=== PATIENT | male | born 1985 | race African-American/Black ===

== ENCOUNTER 2019-10-19 20:05 | Emergency (ER) | payer OTHER ==
[~2019-10-19] VITALS: Ht 185.4 cm; Wt 95.5 kg
[2019-10-19 20:36] VITALS: BP 125/88
[2019-10-19] MEDS ORDERED: chlorproMAZINE IM 25 MG/ML AMPUL IM ONE (21:15)
--- NOTE | 2019-10-19 21:31 | PHYS DOC ---
Past Medical History Past Medical History: No Pertinent History (RAH MOORE APRN) Past Surgical History: No Surgical History (RAH MOORE APRN) Smoking Status: Never Smoker Alcohol Use: None (RAH MOORE APRN) Attending Signature I have participated in the care of this patient and I have reviewed and agree with all pertinent clinical information above including history, exam, and recommendations. (BAY WINSTON MD) Adult General Chief Complaint Chief Complaint: HICCUPS/SINGULTUS HPI HPI Patient is a 34 year old male who presents to the emergency department with complaints of intractable hiccups for the last 3 days. He denies any nausea, vomiting, diarrhea, fever, cough, nasal congestion, shortness of breath, wheezing, or stridor. Patient states that his stomach hurts with the hiccuping. He denies any chest pain, palpitations, syncope, numbness, tingling, or heada lux. Patient states that he was treated for strep throat last week and that he has completed the antibiotics. He currently denies any pain unless he is hiccuping. With hiccuping the pain increases to 9 out of 10 on the pain scale located in his upper abdomen. (RAH MOORE APRN) Review of Systems Review of Systems Complete ROS is negative unless otherwise noted in HPI. (RAH MOORE APRN) Current Medications Current Medications Current Medications Medications (Trade) Dose Ordered Sig/Anne Start Time Stop Time Status Last Admin Dose Admin Chlorpromazine HCl (Thorazine Im) 25 mg 1X ONCE 10/19/19 21:15 10/19/19 21:16 DC 10/19/19 21:27 25 MG (BAY WINSTON MD) Allergies Allergies Allergies Coded Allergies Type Severity Reaction Last Updated Verified No Known Drug Allergies 10/19/19 No (BAY WINSTON MD) Physical Exam Physical Exam See Above Constitutional: Well developed, well nourished, no acute distress, non-toxic appearance. [] HENT: Normocephalic, atraumatic, bilateral external ears normal, oropharynx moist, no oral exudates, nose normal. [] Eyes: PERRLA, EOMI, conjunctiva normal, no discharge. [] Neck: Normal range of motion, no tenderness, supple, no stridor. [] Cardiovascular:Heart rate regular rhythm, no murmur [] Lungs & Thorax: Bilateral breath sounds clear to auscultation [] Abdomen: soft, no tenderness Skin: Warm, dry, no erythema, no rash. [] Extremities: No cyanosis, ROM intact Neurologic: Alert and oriented X 3, no focal deficits noted. [] Psychologic: Affect normal, judgement normal, mood normal. [] (RAH MOOER APRN) Current Patient Data Vital Signs Vital Signs Date Time Temp Pulse Resp B/P (MAP) Pulse Ox O2 Delivery O2 Flow Rate FiO2 10/19/19 20:36 98.1 77 20 125/88 (100) 97 Room Air 98.1 (BAY WINSTON MD) EKG EKG [] (RAH MOORE APRN) Radiology/Procedures Radiology/Procedures [] (RAH MOORE APRN) Course & Med Decision Making Course & Med Decision Making Pertinent Labs and Imaging studies reviewed. (See chart for details) [] (RAH MOORE APRN) Dragon Disclaimer Dragon Disclaimer This electronic medical record was generated, in whole or in part, using a voice recognition dictation system. (RAH MOORE APRN) Departure Departure Impression: Primary Impression: Intractable hiccoughs Disposition: 01 HOME, SELF-CARE Condition: STABLE Referrals: NO PCP (PCP) Patient Instructions: Hiccups-Brief Additional Instructions: Follow up with your primary care doctor this week. Return to the ER if symptoms worsen. RAH MOORE APRN Oct 19, 2019 21:31 BAY WINSTON MD Oct 20, 2019 05:53
== END 2019-10-19 21:40 | disposition home or self-care (01) ==
LOC: ER 20:05
DX: R06.6 Hiccough (principal)
CPT/HCPCS: 96372; 99283; J3230